=== PATIENT | female | born 1965 | race Caucasian/White ===

== ENCOUNTER → 2023-12-23 | Outpatient (CLI) | payer OTHER ==
[~2023-12-23] MED LIST: BACL10 PO; FLUO20 PO; HYDACE5 PO; NAPR500 PO; TRAZ100 PO
[2023-12-23 15:23] LABS: BASOPHILS ABSOLUTE AUTO 0.05 K/mm3 (0.00-0.23); BASOPHILS PERCENT AUTO 1 % (0-2); EOSINOPHILS ABSOLUTE AUTO 0.13 K/mm3 (0.00-0.68); EOSINOPHILS PERCENT AUTO 2 % (0-6); Hematocrit 39.2 % (33.0-51.0); Hemoglobin 12.6 g/dL (11.5-16.0); IMMATURE GRAN ABSOLUTE AUTO 0.02 K/mm3 (0.00-0.10); IMMATURE GRAN PERCENT AUTO 0 % (0-1); LYMPHOCYTES ABSOLUTE AUTO 1.23 K/mm3 (0.84-5.20); LYMPHOCYTES PERCENT AUTO 22 % (21-46); MONOCYTES ABSOLUTE AUTO 0.54 K/mm3 (0.16-1.47); MONOCYTES PERCENT AUTO 10 % (4-13); Mean Corpuscular HGB 28.7 pg (26.0-34.0); Mean Corpuscular HGB Conc 32.1 g/dL (31.5-36.5); Mean Corpuscular Volume 89 fL (80-100); Mean Platelet Volume 8.8 fL (9.1-12.4); NEUTROPHILS ABSOLUTE AUTO 3.74 K/mm3 (1.96-9.15); NEUTROPHILS PERCENT AUTO 65 % (41-73); Platelet Count 283 K/mm3 (150-400); RDW Coefficient Variation 12.6 % (11.7-14.2); RDW Standard Deviation 41.8 fL (35.1-46.3); Red Blood Cell Count 4.39 M/mm3 (3.80-5.20); White Blood Cell Count 5.71 K/mm3 (4.00-11.30)
[2023-12-23 15:31] LABS: Alanine Aminotransfer (ALT/SGP 22 U/L (12-78); Albumin, Blood 3.2 g/dL (3.4-5.0); Albumin/Globulin Ratio 0.9 (0.8-1.8); Alk Phos 106 U/L (50-136); Anion Gap 5 mmol/L (3-11); Aspartate Aminotrans (AST/SGOT 20 U/L (12-37); Bilirubin, Total 0.5 mg/dL (0.1-1.0); Blood Urea Nitrogen 11 mg/dL (8-24); Bun/Creatinine Ratio 15.9 (12.0-20.0); CHOL/HDL RATIO 3.2; CO2, Blood 30 mmol/L (21-32); Calcium, Blood 8.4 mg/dL (8.5-10.1); Chloride, Blood 108 mmol/L (98-108); Cholesterol 258 mg/dL (50-200); Creatinine, Blood 0.69 mg/dL (0.40-1.00); Globulin, Blood 3.5 g/dL (2.2-4.0); Glomerular Filtration Rate 101 (60-); Glucose, Blood 118 mg/dL (70-99); HDL Cholesterol 81 mg/dL (>39); Low Density Lipoprotein Chol 161 mg/dL (0-110); Potassium, Blood 3.7 mmol/L (3.5-5.5); Sodium, Blood 139 mmol/L (136-145); Total Protein, Blood 6.7 g/dL (6.4-8.2); Triglycerides 80 mg/dL (30-160); Very Low Density Lipoprot Chol 16 mg/dL (6-32)
== END ==
LOC: LAB 13:43 → LAB SHORT 13:43
PROVIDERS: Family Medicine
DX: Z00.01 Encounter for general adult medical examination with abnormal findings (principal)
CPT/HCPCS: 80053; 80061; 84443; 85025

== ENCOUNTER 2024-05-20 05:44 | Observation (INO) | payer OTHER ==
[~2024-05-20] VITALS: Ht 147.3 cm; Wt 77.2 kg
[2024-05-20] MEDS ORDERED: Aspirin 325 MG Tab PO ONE (05:55)
[2024-05-20] MEDS ORDERED: Nitroglycerin 0.4 MG SUBL SL PRN (05:55)
[2024-05-20] MEDS ORDERED: ZANAFLEX413 PO ×2 (06:00)
[2024-05-20] MEDS ORDERED: PROAIR RESPICL90 MCG IH ×2 (06:01)
[2024-05-20 06:05] LABS: BASOPHILS ABSOLUTE AUTO 0.08 K/mm3 (0.00-0.23); BASOPHILS PERCENT AUTO 2 % (0-2); EOSINOPHILS ABSOLUTE AUTO 0.19 K/mm3 (0.00-0.68); EOSINOPHILS PERCENT AUTO 4 % (0-6); Hematocrit 41.7 % (33.0-51.0); Hemoglobin 13.2 g/dL (11.5-16.0); IMMATURE GRAN ABSOLUTE AUTO 0.02 K/mm3 (0.00-0.10); IMMATURE GRAN PERCENT AUTO 0 % (0-1); LYMPHOCYTES ABSOLUTE AUTO 1.49 K/mm3 (0.84-5.20); LYMPHOCYTES PERCENT AUTO 31 % (21-46); MONOCYTES ABSOLUTE AUTO 0.72 K/mm3 (0.16-1.47); MONOCYTES PERCENT AUTO 15 % (4-13); Mean Corpuscular HGB 28.6 pg (26.0-34.0); Mean Corpuscular HGB Conc 31.7 g/dL (31.5-36.5); Mean Corpuscular Volume 90 fL (80-100); Mean Platelet Volume 8.3 fL (9.1-12.4); NEUTROPHILS PERCENT AUTO 48 % (41-73); Platelet Count 260 K/mm3 (150-400); RDW Coefficient Variation 12.6 % (11.7-14.2); RDW Standard Deviation 41.3 fL (35.1-46.3); Red Blood Cell Count 4.62 M/mm3 (3.80-5.20)
[2024-05-20 06:31] LABS: Albumin, Blood 3.4 g/dL (3.4-5.0); Bilirubin, Total 0.2 mg/dL (0.1-1.0); Bun/Creatinine Ratio 25.6 (12.0-20.0); Calcium, Blood 9.3 mg/dL (8.5-10.1); Creatinine, Blood 0.66 mg/dL (0.40-1.00); Globulin, Blood 3.4 g/dL (2.2-4.0); Total Protein, Blood 6.8 g/dL (6.4-8.2)
[2024-05-20] MEDS ORDERED: FentaNYL Citrate 50 MCG/ML 2 ML Injection IV ONE (06:35)
[2024-05-20] MEDS ORDERED: Ondansetron HCl 2 MG / ML 2ML Vial IV ONE (06:35)
[2024-05-20] MEDS ORDERED: FLU VACC TS2024-25(6MOS UP)/PF 45 MCG/0.5 ML SYRINGE IM SCH (08:20)
[2024-05-20 09:22] LABS: CHOL/HDL RATIO 2.5; Cholesterol 207 mg/dL (50-200); HDL Cholesterol 84 mg/dL (>39); LDL/HDL RATIO 1.3; Low Density Lipoprotein Chol 111 mg/dL (0-110); Triglycerides 62 mg/dL (30-160); Very Low Density Lipoprot Chol 12 mg/dL (6-32)
[2024-05-20] MEDS ORDERED: FLUoxetine HCL 20 MG CAP PO SCH (10:00)
[2024-05-20] MEDS ORDERED: Regadenoson 0.4 MG/5 ML SYRINGE ONE (10:36)
[2024-05-20] MEDS ORDERED: Aminophylline 250MG / 10ML 10 ML Vial ONE (10:36)
[2024-05-20] MEDS ORDERED: DiphenhydrAMINE HCl 50 MG/ML 1ML Vial IV PRN (12:15)
[2024-05-20] MEDS ORDERED: Albuterol HFA200 ACT/6.7 GM INH INH PRN (12:45)
[2024-05-20 13:03] VITALS: BP 179/79
[2024-05-20] MEDS ORDERED: Acetaminophen 500 MG Tab PO PRN (13:10)
[2024-05-20 13:20] VITALS: BP 149/77
[2024-05-20] MEDS ORDERED: IBUP600 PO ×2 (13:33)
--- NOTE | 2024-05-20 14:00 | NUR ---
ADMIT TO PCU 02 AT 1300: PATIENT ABLE TO STAND AND TRANSFER IND TO HOSPITAL BED. DENIES NUMBNESS/TINGLING. COMPLAINS OF 6/10 HEADACHE ACROSS TEMPLES. DENIES BLURRY VISION/DIZZINESS. MOVING ALL EXTREMITIES EQUALLY. PERRLA. TELE SHOWING SR WITH HR 80'S. SBP 140'S. DENIES CHEST PAIN/PRESSURE/PALPITATIONS. IV SALINE LOCKED. STRESS TEST COMPLETED PRIOR TO ER ADMIT. PPP. MILD SWELLING NOTED IN BILATERAL HANDS. SKIN REACTION REPORTED POST STRESS TEST INJECTION RESULTING IN REDNESS/SWELLING IN BILATERAL HANDS. IV BENADRYL GIVEN IN ED WITH IMPROVED SYMPTOMS. ON ROOM AIR SATING ABOVE 95%. DENIES SOB/COUGH. EVEN AND UNLABORED RESPIRTATIONS. PATIENT REPORTS HISTORY OF ASTHMA AND TAKING ALBUTEROL AT HOME. BOWEL TONES PRESENT IN ALL FOUR QUADRANTS. DENIES ABDOMINAL PAIN/NAUSEA. DENIES ISSUES WITH VOIDING. LAST BOWEL MOVEMENT 05/19. DENIES ISSUES WITH SWALLOWING. HEART HEALTHY DIET IN PLACE POST STRESS TEST. ATTENDS IN PLACE. PATIENT UP IN TO BATHROOM. URINE HAT IN TOILET FOR MEASURING. THIS RN PLACED CALL TO DR. NERY MONK TO UPDATE ON HEADACHE AND REQUEST TYLENOL ORDERS. ORDERS IN PLACE. PATIENT MEDICATED PER EMAR WITH TYLENOL. FAMILY AT BEDSIDE. HOME MED REC LIST COMPLETED. CALL LIGHT IN REACH. DENIES NEEDS AT THIS TIME.
[2024-05-20] MEDS ORDERED: Ibuprofen 600 MG Tab PO PRN (15:20)
[2024-05-20] MEDS ORDERED: ATOR10 PO ×2 (15:32)
--- NOTE | 2024-05-20 15:58 | NUR ---
DISCHARGE UPDATE DISCHARGE PACKET GONE OVER WITH PT AND PT'S FAMILY AT 1555. PT DISCHARGE AT 1605. PT DECLINED WHEELCHAIR FOR TRANSPORTATION TO TO VEHICLE. DISCHARGE PACKET WITH PT AT TIME OF DISCHARGE. PERSONAL BELONGINGS WITH PT AT TIME OF DISCHARGE.
[2024-05-20] MEDS ORDERED: Atorvastatin 10 MG Tab PO SCH (21:00)
[2024-05-20] MEDS ORDERED: TiZANidine HCl 4 MG Tab PO PRN (21:00)
[2024-05-21] MEDS ORDERED: Enoxaparin 40 MG/0.4 ML SYR SC SCH (09:00)
== END 2024-05-20 16:05 | disposition home or self-care (01) ==
LOC: ER 05:44 → ERHOLD 05:45 → PCU 13:02
PROVIDERS: Emergency Medicine; Family Medicine; ADMIT Hospitalist
DX: R07.89 Other chest pain (principal); F41.0 Panic disorder [episodic paroxysmal anxiety]; J45.40 Moderate persistent asthma, uncomplicated; Z79.899 Other long term (current) drug therapy; Z88.8 Allergy status to other drugs, medicaments and biological substances; Z66 Do not resuscitate
CPT/HCPCS: 71045; 78452; 80053; 80061; 83036; 83880; 84484; 85025; 93005; 93010; 93017; 96374; 99285-25; A9270; A9500; G0378; J0280; J1200; J2785

== ENCOUNTER 2024-05-24 10:54 | Emergency (ER) | payer OTHER ==
[~2024-05-24] VITALS: Ht 147.3 cm; Wt 75.8 kg
[~2024-05-24 10:54] MED LIST changes: +ATOR10 PO; +IBUP600 PO; +PROAIR RESPICL90 MCG IH; +ZANAFLEX413 PO
[2024-05-24 11:30] LABS: BASOPHILS ABSOLUTE AUTO 0.06 K/mm3 (0.00-0.23); BASOPHILS PERCENT AUTO 1 % (0-2); EOSINOPHILS ABSOLUTE AUTO 0.15 K/mm3 (0.00-0.68); EOSINOPHILS PERCENT AUTO 3 % (0-6); Hematocrit 40.4 % (33.0-51.0); Hemoglobin 13.2 g/dL (11.5-16.0); IMMATURE GRAN ABSOLUTE AUTO 0.02 K/mm3 (0.00-0.10); IMMATURE GRAN PERCENT AUTO 0 % (0-1); LYMPHOCYTES ABSOLUTE AUTO 1.35 K/mm3 (0.84-5.20); LYMPHOCYTES PERCENT AUTO 30 % (21-46); MONOCYTES ABSOLUTE AUTO 0.38 K/mm3 (0.16-1.47); MONOCYTES PERCENT AUTO 9 % (4-13); Mean Corpuscular HGB 28.5 pg (26.0-34.0); Mean Corpuscular HGB Conc 32.7 g/dL (31.5-36.5); Mean Corpuscular Volume 87 fL (80-100); Mean Platelet Volume 8.6 fL (9.1-12.4); NEUTROPHILS PERCENT AUTO 56 % (41-73); Platelet Count 314 K/mm3 (150-400); RDW Coefficient Variation 12.5 % (11.7-14.2); RDW Standard Deviation 39.8 fL (35.1-46.3); Red Blood Cell Count 4.63 M/mm3 (3.80-5.20); White Blood Cell Count 4.46 K/mm3 (4.00-11.30)
[2024-05-24 11:51] LABS: Albumin/Globulin Ratio 0.8 (0.8-1.8); Bilirubin, Total 0.6 mg/dL (0.1-1.0); Bun/Creatinine Ratio 32.8 (12.0-20.0); Calcium, Blood 9.3 mg/dL (8.5-10.1); Creatinine, Blood 0.67 mg/dL (0.40-1.00); Globulin, Blood 3.6 g/dL (2.2-4.0); Total Protein, Blood 6.6 g/dL (6.4-8.2)
[2024-05-24] MEDS ORDERED: HyDROXyzine HCl 25 MG Tab PO ONE (12:15)
[2024-05-24 13:15] VITALS: BP 143/90
[2024-05-24] MEDS ORDERED: HYDHCL25 PO (13:58)
== END 2024-05-24 14:17 | disposition home or self-care (01) ==
LOC: ER 10:54
PROVIDERS: Emergency Medicine
DX: R07.9 Chest pain, unspecified (principal); R20.2 Paresthesia of skin; F41.0 Panic disorder [episodic paroxysmal anxiety]; R79.89 Other specified abnormal findings of blood chemistry; E78.5 Hyperlipidemia, unspecified; Z79.899 Other long term (current) drug therapy; Z88.1 Allergy status to other antibiotic agents
CPT/HCPCS: 71046; 71260; 80053; 83690; 83735; 84484; 85025; 85379; 93005; 93010; 99285-25; A9270; Q9967

== ENCOUNTER → 2025-05-03 | Outpatient (CLI) | payer OTHER ==
[~2025-05-03] MED LIST changes: +HYDHCL25 PO
[2025-05-03 12:15] LABS: BASOPHILS ABSOLUTE AUTO 0.05 K/mm3 (0.00-0.23); BASOPHILS PERCENT AUTO 1 % (0-2); EOSINOPHILS ABSOLUTE AUTO 0.09 K/mm3 (0.00-0.68); EOSINOPHILS PERCENT AUTO 2 % (0-6); Hematocrit 42.4 % (33.0-51.0); Hemoglobin 13.4 g/dL (11.5-16.0); IMMATURE GRAN ABSOLUTE AUTO 0.02 K/mm3 (0.00-0.10); IMMATURE GRAN PERCENT AUTO 1 % (0-1); LYMPHOCYTES ABSOLUTE AUTO 1.14 K/mm3 (0.84-5.20); LYMPHOCYTES PERCENT AUTO 26 % (21-46); MONOCYTES ABSOLUTE AUTO 0.41 K/mm3 (0.16-1.47); MONOCYTES PERCENT AUTO 9 % (4-13); Mean Corpuscular HGB Conc 31.6 g/dL (31.5-36.5); Mean Corpuscular Volume 90 fL (80-100); NEUTROPHILS ABSOLUTE AUTO 2.66 K/mm3 (1.96-9.15); NEUTROPHILS PERCENT AUTO 61 % (41-73); NRBC ABSOLUTE 0.00 K/mm3 (0.00-0.02); NRBC Auto 0.0 /100 WBC (0.0-0.2); Platelet Count 288 K/mm3 (150-400); RDW Coefficient Variation 12.7 % (11.7-14.2); RDW Standard Deviation 42.1 fL (35.1-46.3)
[2025-05-03 12:34] LABS: Alanine Aminotransfer (ALT/SGP 31 U/L (12-78); Albumin, Blood 3.7 g/dL (3.4-5.0); Albumin/Globulin Ratio 1.1 (0.8-1.8); Anion Gap 7 mmol/L (3-11); Aspartate Aminotrans (AST/SGOT 18 U/L (12-37); Bilirubin, Total 0.5 mg/dL (0.1-1.0); Blood Urea Nitrogen 12 mg/dL (8-24); CHOL/HDL RATIO 2.5; CO2, Blood 29 mmol/L (21-32); Calcium, Blood 9.0 mg/dL (8.5-10.1); Chloride, Blood 105 mmol/L (98-108); Cholesterol 189 mg/dL (50-200); Creatinine, Blood 0.74 mg/dL (0.40-1.00); Globulin, Blood 3.3 g/dL (2.2-4.0); Glucose, Blood 106 mg/dL (70-99); HDL Cholesterol 77 mg/dL (>39); LDL/HDL RATIO 1.2; Low Density Lipoprotein Chol 95 mg/dL (0-110); Potassium, Blood 3.9 mmol/L (3.5-5.5); Sodium, Blood 137 mmol/L (136-145); Thyroid Stimulating Hormone 1.910 uIU/mL (0.360-4.800); Total Protein, Blood 7.0 g/dL (6.4-8.2); Triglycerides 87 mg/dL (30-160); Very Low Density Lipoprot Chol 17 mg/dL (6-32)
== END ==
LOC: LAB SHORT 10:46 → LAB 10:46
PROVIDERS: Family Medicine
DX: I10 Essential (primary) hypertension (principal); G25.81 Restless legs syndrome; R53.83 Other fatigue
CPT/HCPCS: 80053; 80061; 82607; 84443; 85025